=== PATIENT | male | born 1985 | race Two or more races ===

== ENCOUNTER 2018-04-06 08:19 | Emergency (ER) | payer OTHER ==
[2018-04-06 08:32] VITALS: BP 157/92; PULSE 94; RESP 18; TEMP 98.7
[2018-04-06] MEDS ORDERED: ORPHENADRINE 30 MG/ML 2 ML VIAL IM STA (08:59)
[2018-04-06] MEDS ORDERED: MORPHINE SULFATE 2 MG/ML SYRINGE IM STA (08:59)
--- NOTE | 2018-04-06 09:03 | ED ---
Back Pain HPI - General Chief Complaint: Back Pain/Injury Stated Complaint: Sciatic nerve pain Time Seen by Provider: 04/06/18 08:42 Source: patient, old records reviewed Limitations: no limitations - History of Present Illness Initial Comments: 32-year-old male presents emergency Department chief complaint of low back pain. Patient has known lumbar disc herniation. Patient states he saw surgeon in the past but states that things seem to get better said never had surgery. Patient states he is scheduled for next Thursday with the surgeon in [place]. Patient states that he believes this was aggravated by running after his kids. Patient denies any bowel incontinence or bladder retention. Denies any saddle anesthesias or lower shunted paresthesias. He states he has pain from his right buttocks all her down to his right foot. Denies any discoloration of the lower extremities. He denies any abdominal pain, back pain in the thoracic region, chest pain, shortness breath, fever, chills. Patient saw PCP started on etodolac and in his own. - Related Data Previous Rx's Medication Instructions Recorded Cyclobenzaprine [Flexeril] 10 mg PO TID PRN #15 tab 04/06/18 Hydrocodone/Acetaminophen [[place] 1 tab PO Q6HR PRN #12 tab 04/06/18 5-325] Allergies Allergy/AdvReac Type Severity Reaction Status Date / Time iodine Allergy Anaphylaxis Verified 04/06/18 08:32 Review of Systems ROS Statement: Those systems with pertinent positive or pertinent negative responses have been documented in the HPI. ROS Other: All systems not noted in ROS Statement are negative. Past Medical History Additional Past Medical History / Comment(s): back problems, herniated disc History of Any Multi-Drug Resistant Organisms: None Reported Past Surgical History: No Surgical Hx Reported Past Psychological History: No Psychological Hx Reported Smoking Status: Never smoker Past Alcohol Use History: None Reported Past Drug Use History: None Reported General Exam Limitations: no limitations General appearance: alert, in no apparent distress Head exam: Present: atraumatic, normocephalic, normal inspection Neck exam: Present: normal inspection, full ROM. Absent: tenderness, meningismus, lymphadenopathy Respiratory exam: Present: normal lung sounds bilaterally. Absent: respiratory distress, wheezes, rales, rhonchi, stridor Cardiovascular Exam: Present: regular rate, normal rhythm, normal heart sounds. Absent: systolic murmur, diastolic murmur, rubs, gallop, clicks GI/Abdominal exam: Present: soft, normal bowel sounds. Absent: distended, tenderness, guarding, rebound, rigid Extremities exam: Present: other (Lower extremity pulses equal bilaterally, equal color equal warmth there is pain with range of motion the right leg) Back exam: Present: normal inspection, tenderness (Minimal right low back), paraspinal tenderness, other (Pain with right straight leg raise). Absent: full ROM, vertebral tenderness Neurological exam: Present: reflexes normal. Absent: motor sensory deficit Skin exam: Present: warm, dry, intact, normal color. Absent: rash Course Vital Signs 04/06/18 08:29 Temperature 98.7 F Pulse Rate 94 Respiratory 18 Rate Blood Pressure 157/92 O2 Sat by Pulse 100 Oximetry Medical Decision Making - Medical Decision Making 32-year-old male present emergency from for low back pain. Patient is lumbar radiculopathy. Patient does have MRI from a few years ago on record which shows disc herniation with fragment L5-S1. Patient has no red flag symptoms he has neurovascular intact lower extremities. Patient has appointment with surgeon on Thursday. Patient will be given a short prescription of pain medication and muscle relaxers. Return parameters were discussed. Disposition Clinical Impression: Lumbar radiculopathy, acute Disposition: HOME SELF-CARE Condition: Stable Instructions: Acute Low Back Pain (ED) Additional Instructions: Please return to the Emergency Department if symptoms worsen or any other concerns. Prescriptions: Cyclobenzaprine [Flexeril] 10 mg PO TID PRN #15 tab PRN Reason: Muscle Spasm Hydrocodone/Acetaminophen [[place] 5-325] 1 tab PO Q6HR PRN #12 tab PRN Reason: Pain Is patient prescribed a controlled substance at d/c from ED?: Yes When asked, does pt state using other controlled substances?: No If prescribed controlled substance>3 days was MAPS reviewed?: Prescribed <3 Days If opioid is for acute pain is fill amount 7 days or less?: Yes If Rx opioid, was Start Talking consent form obtained?: Yes Referrals: Jay Frey MD [Primary Care Provider] - 1-2 days Time of Disposition: 09:03
== END 2018-04-06 09:19 | disposition home or self-care (01) ==
LOC: EC 08:19
DX: M51.16 Intervertebral disc disorders with radiculopathy, lumbar region (principal); Z91.048 Other nonmedicinal substance allergy status
CPT/HCPCS: 99283; 96372 ×2; J2360; J2270